=== PATIENT | female | born 1985 | race Two or more races ===

== ENCOUNTER 2017-01-05 08:36 | Day surgery (SDC) | payer OTHER ==
[~2017-01-05] VITALS: Ht 162.6 cm; Wt 89.3 kg
[~2017-01-05 08:36] MED LIST: DEPO-PROVER400 MG/ML IM; IBUPROFEN800 MG PO; NOHOMEMEDS; PRENATABS RX T1 EACH PO; TYLENOL WITH C1 EACH PO
[2017-01-05 09:07] VITALS: BP 98/57
[2017-01-05 12:40] VITALS: BP 115/59
[2017-01-05 13:49] VITALS: BP 138/68
== END 2017-01-05 14:10 | disposition home or self-care (01) ==
LOC: SDC 08:36
PROC: 0U574ZZ Destruction of Bilateral Fallopian Tubes, Percutaneous Endoscopic Approach (ICD-10-PCS; principal; 2017-01-05)
DX: Z30.2 Encounter for sterilization (principal); Z87.891 Personal history of nicotine dependence
CPT/HCPCS: J0131; J1100; J1170; J1885; J2250; J2405; J2710; J2765; J3010